=== PATIENT | male | born 1970 ===

== ENCOUNTER 2020-03-28 05:39 | Emergency (ER) | payer OTHER ==
[~2020-03-28] VITALS: Ht 172.7 cm; Wt 95.3 kg
[~2020-03-28 05:39] MED LIST: IRBESARTAN-HCT1 EAC1 PO
[2020-03-28] MEDS ORDERED: AMLODIPINE-OLM1 EACH (05:49)
[2020-03-28] MEDS ORDERED: ZESTRIL10 M1 (05:49)
== END 2020-03-28 13:14 | disposition home or self-care (01) ==
LOC: ER 05:39
DX: R07.89 Other chest pain (principal); M94.0 Chondrocostal junction syndrome [Tietze]; Z20.828 Contact with and (suspected) exposure to other viral communicable diseases